=== PATIENT | male | born 1965 | race Two or more races ===

== ENCOUNTER 2018-05-05 22:30 | Emergency (ER) | payer SELFPAY ==
[~2018-05-05] VITALS: Ht 167.6 cm; Wt 70.3 kg
[~2018-05-05 22:30] MED LIST: ACETAMINOPHEN-1 EAC1 ORAL; ASPIRIN81 MG ORAL; CIPROFLOXACIN500 M2 ORAL; JANUMET 50-1,01 EACH ORAL; LISINOPRIL10 MG ORAL; METFORMIN HCL500 M1 ORAL; NORCO 5-325 TA1 EACH ORAL; NOVOLIN N100 UNIT/1 SUBQ
[2018-05-05] MEDS ORDERED: Sodium Chloride 500ML 500 ML IV ONE (23:01)
[2018-05-05 23:30] LABS: BASOPHILS % (AUTO) 1.6 % (0.0-2.0); EOSINOPHILS % (AUTO) 4.8 % (0.0-3.0); HEMOGLOBIN 15.8 G/DL (14.2-18.0); LYMPHOCYTES % (AUTO) 28.1 % (20.0-45.0); MEAN CORPUSCULAR VOLUME 90 FL (80-99); MONOCYTES % (AUTO) 10.7 % (1.0-10.0); NEUTROPHILS % (AUTO) 54.9 % (45.0-75.0); PLATELET COUNT 264 K/UL (150-450); RED BLOOD COUNT 4.99 M/UL (4.70-6.10); RED CELL DISTRIBUTION WIDTH 10.6 % (11.6-14.8); WHITE BLOOD COUNT 6.5 K/UL (4.8-10.8)
[2018-05-05 23:31] LABS: APPEARANCE,URINE CLEAR; BILIRUBIN, URINE NEGATIVE (NEGATIVE); COLOR,URINE PALE YELLOW; GLUCOSE, URINE (UA) 4+ (NEGATIVE); KETONES,URINE NEGATIVE (NEGATIVE); LEUKOCYTE ESTERASE ,URINE NEGATIVE (NEGATIVE); NITRITE,URINE NEGATIVE (NEGATIVE); PH,URINE 7 (4.5-8.0); PROTEIN,URINE NEGATIVE (NEGATIVE); UROBILINOGEN,URINE NORMAL MG/DL (0.0-1.0)
[2018-05-05 23:37] LABS: ANION GAP 7 mmol/L (5-15); BLOOD UREA NITROGEN 21 mg/dL (7-18); CALCIUM 8.5 MG/DL (8.5-10.1); CARBON DIOXIDE 25 MMOL/L (21-32); CHLORIDE 104 MMOL/L (98-107); CREATININE 0.6 MG/DL (0.55-1.30); SODIUM 136 MMOL/L (136-145)
[2018-05-05 23:42] LABS: ALANINE AMINOTRANSFERASE 63 U/L (12-78); ALBUMIN 3.5 G/DL (3.4-5.0); ALKALINE PHOSPHATASE 100 U/L (46-116); ASPARTATE AMINO TRANSFERASE 30 U/L (15-37); BILIRUBIN,TOTAL 0.5 MG/DL (0.2-1.0)
[2018-05-06] MEDS ORDERED: IBUPROFEN600 MG ORAL (00:20)
[2018-05-06 00:31] VITALS: BP 116/71
--- NOTE | 2018-05-07 07:18 | Emergency Room Report ---
History of Present Illness General Chief Complaint: Headache Source: Patient Present Illness HPI 52-year-old male presents ED for evaluation. States he's been experiencing a headache, dizziness, and generalized joint pain for the last several days. Pain is dull, 6 out of 10, nonradiating. Patient states he is a diabetic. States he is compliant with his medications. Denies any photophobia or blurry vision. Denies nausea or vomiting. Denies any neck stiffness. Denies chest pain shortness of breath. No other aggravating relieving factors. Denies any other associated symptoms Allergies: Coded Allergies: NO KNOWN DRUG ALLERGIES (Unverified Allergy, Unknown, 12/15/14) Patient History Past Medical History: DM, HTN Past Surgical History: none Pertinent Family History: none Social History: Denies: smoking, alcohol use, drug use Immunizations: UTD Reviewed Nursing Documentation: PMH: Agreed; PSxH: Agreed Nursing Documentation-PMH Hx Cardiac Problems: Yes - BRADYCARDIA Hx Hypertension: Yes Hx Diabetes: Yes Hx Cancer: No Hx Gastrointestinal Problems: No Hx Neurological Problems: Yes Hx Vertigo: Yes Hx Dizziness: Yes Hx Syncope: Yes Hx Headaches: Yes Hx Weakness: Yes Hx Fatigue: Yes Review of Systems All Other Systems: negative except mentioned in HPI Physical Exam Vital Signs Date Time Temp Pulse Resp B/P (MAP) Pulse Ox O2 Delivery O2 Flow Rate FiO2 05/05/18 22:34 97.9 77 16 114/74 95 Room Air 97.9 Sp02 EP Interpretation: reviewed, normal General Appearance: no apparent distress, alert, GCS 15, non-toxic Head: normocephalic, atraumatic Eyes: bilateral eye normal inspection, bilateral eye PERRL ENT: hearing grossly normal, normal pharynx, no angioedema, normal voice Neck: full range of motion, supple/symm/no masses Respiratory: chest non-tender, lungs clear, normal breath sounds, speaking full sentences Cardiovascular #1: regular rate, rhythm, no edema Cardiovascular #2: 2+ carotid (R), 2+ carotid (L), 2+ radial (R), 2+ radial (L) , 2+ dorsalis pedis (R), 2+ dorsalis pedis (L) Gastrointestinal: normal bowel sounds, non tender, soft, non-distended, no guarding, no rebound Rectal: deferred Genitourinary: normal inspection, no CVA tenderness Musculoskeletal: back normal, gait/station normal, normal range of motion, non- tender Neurologic: alert, oriented x3, responsive, motor strength/tone normal, sensory intact, speech normal Psychiatric: judgement/insight normal, memory normal, mood/affect normal, no suicidal/homicidal ideation Reflexes: 3+ bicep (R), 3+ bicep (L), 3+ tricep (R), 3+ tricep (L), 3+ knee (R) , 3+ knee (L) Skin: normal color, no rash, warm/dry, well hydrated Lymphatic: no adenopathy Medical Decision Making Diagnostic Impression: Primary Impression: Dizziness ER Course Hospital Course 52-year-old male presenting to ED with elevated BS, dizziness. Differential diagnoses include: ETOH/drug ingestion, sepsis, DKA Clinical course Patient placed on stretcher. On engine monitor. After initial history and physical I ordered labs, IV fluids, UA Labs-glucose >200, no anion gap, bicarbonate normal, electrolytes ok. no leukocytosis. On reassessment headache resolved. Patient feeling better. On my exam patient' s did not have any reproducible palpable tenderness to his legs and feet. Pain is noted primarily in the joints. Likely arthropathy. No indication for imaging at this time i. I feel this is a highly complex case requiring extensive working including EKG/Rhythm strip, Xray/CT/US, Blood/urine lab work, repeat exams while in ED, and administration of strong opiates/narcotics for pain control, admission to hospital or close patient follow up. diagnosis - dizziness Stable and discharged to home. Followup with PMD. Return to ED if symptoms recur or worsen Labs Test 05/05/18 23:14 White Blood Count 6.5 K/UL (4.8-10.8) Red Blood Count 4.99 M/UL (4.70-6.10) Hemoglobin 15.8 G/DL (14.2-18.0) Hematocrit 45.0 % (42.0-52.0) Mean Corpuscular Volume 90 FL (80-99) Mean Corpuscular Hemoglobin 31.6 PG (27.0-31.0) Mean Corpuscular Hemoglobin Concent 35.0 G/DL (32.0-36.0) Red Cell Distribution Width 10.6 % (11.6-14.8) Platelet Count 264 K/UL (150-450) Mean Platelet Volume 8.8 FL (6.5-10.1) Neutrophils (%) (Auto) 54.9 % (45.0-75.0) Lymphocytes (%) (Auto) 28.1 % (20.0-45.0) Monocytes (%) (Auto) 10.7 % (1.0-10.0) Eosinophils (%) (Auto) 4.8 % (0.0-3.0) Basophils (%) (Auto) 1.6 % (0.0-2.0) Urine Color Pale yellow Urine Appearance Clear Urine pH 7 (4.5-8.0) Urine Specific [place] 1.010 (1.005-1.035) Urine Protein Negative (NEGATIVE) Urine Glucose (UA) 4+ (NEGATIVE) Urine Ketones Negative (NEGATIVE) Urine Occult Blood Negative (NEGATIVE) Urine Nitrite Negative (NEGATIVE) Urine Bilirubin Negative (NEGATIVE) Urine Urobilinogen Normal MG/DL (0.0-1.0) Urine Leukocyte Esterase Negative (NEGATIVE) Sodium Level 136 MMOL/L (136-145) Potassium Level 4.0 MMOL/L (3.5-5.1) Chloride Level 104 MMOL/L (98-107) Carbon Dioxide Level 25 MMOL/L (21-32) Anion Gap 7 mmol/L (5-15) Blood Urea Nitrogen 21 mg/dL (7-18) Creatinine 0.6 MG/DL (0.55-1.30) Estimat Glomerular Filtration Rate > 60 mL/min (>60) Glucose Level 285 MG/DL (74-106) Calcium Level 8.5 MG/DL (8.5-10.1) Total Bilirubin 0.5 MG/DL (0.2-1.0) Aspartate Amino Transf (AST/SGOT) 30 U/L (15-37) Alanine Aminotransferase (ALT/SGPT) 63 U/L (12-78) Alkaline Phosphatase 100 U/L (46-116) Total Protein 6.9 G/DL (6.4-8.2) Albumin 3.5 G/DL (3.4-5.0) Globulin 3.4 g/dL Albumin/Globulin Ratio 1.0 (1.0-2.7) Last Vital Signs Date Time Temp Pulse Resp B/P (MAP) Pulse Ox O2 Delivery O2 Flow Rate FiO2 05/06/18 00:31 61 16 116/71 95 Room Air 05/05/18 22:34 97.9 97.9 Status: improved Disposition: HOME, SELF-CARE Condition: Stable Scripts Ibuprofen* (MOTRIN*) 600 Mg Tablet 600 MG ORAL Q8H PRN for For Pain, #30 TAB 0 Refills Prov: Cristhian Smith MD 05/06/18 Referrals: NOT CHOSEN IPA/MD,REFERRING (PCP) Patient Instructions: General Headache Without Cause Cristhian Smith MD May 07, 2018 07:18
== END 2018-05-06 00:35 | disposition home or self-care (01) ==
LOC: EMR 23:05
DX: R42 Dizziness and giddiness (principal); R51 Headache; E11.9 Type 2 diabetes mellitus without complications; I10 Essential (primary) hypertension
CPT/HCPCS: 36415; 80053; 81003; 82962; 85025; 96360; 96374; 99283

== ENCOUNTER 2019-01-14 08:15 | Inpatient (IN) | payer MEDICAID ==
[~2019-01-14] VITALS: Ht 167.6 cm; Wt 68.0 kg
[~2019-01-14 08:15] MED LIST changes: +IBUPROFEN600 MG ORAL
[2019-01-14] MEDS ORDERED: NKM (08:30)
[2019-01-14] MEDS ORDERED: Meclizine 25mg tab ORAL PRN ×2 (08:30→18:45)
[2019-01-14 08:38] VITALS: BP 126/82
--- NOTE | 2019-01-14 08:39 | Emergency Room Report ---
History of Present Illness General Chief Complaint: Headache Source: Patient, Medical Record Present Illness HPI 53-year-old male With a history of hypertension, diabetes, on lisinopril and metformin, noncompliant with meds for the last 3 months, presents with room spinning dizziness for 3 days, as well as longstanding bilateral knee pain radiating to his feet, no relief with motrin, no h/o weakness, slurred speech, syncope, cough, hemoptysis, chest pain, falls, trauma, fevers, urinary complaints. Allergies: Coded Allergies: NO KNOWN DRUG ALLERGIES (Unverified Allergy, Unknown, 12/15/14) Patient History Past Medical History: see triage record Reviewed Nursing Documentation: PMH: Agreed; PSxH: Agreed Nursing Documentation-PMH Hx Cardiac Problems: Yes - BRADYCARDIA Hx Hypertension: Yes Hx Diabetes: Yes Hx Cancer: No Hx Gastrointestinal Problems: No Hx Neurological Problems: Yes Hx Vertigo: Yes Hx Dizziness: Yes Hx Syncope: Yes Hx Headaches: Yes Hx Weakness: Yes Hx Fatigue: Yes Review of Systems All Other Systems: negative except mentioned in HPI Physical Exam Vital Signs Date Time Temp Pulse Resp B/P (MAP) Pulse Ox O2 Delivery O2 Flow Rate FiO2 01/14/19 08:28 98.4 95 16 121/79 95 Room Air Sp02 EP Interpretation: reviewed, normal General Appearance: no apparent distress, alert, non-toxic Head: normocephalic Eyes: bilateral eye normal inspection, bilateral eye PERRL, bilateral eye EOMI ENT: normal ENT inspection, hearing grossly normal, normal pharynx, no angioedema, normal voice, moist mucus membranes Neck: normal inspection, full range of motion, supple, supple/symm/no masses Respiratory: chest non-tender, lungs clear, normal breath sounds, no rhonchi, no respiratory distress, no retraction, no accessory muscle use, no wheezing, speaking full sentences, chest symmetrical, palpation of chest normal Cardiovascular #1: normal peripheral pulses, regular rate, rhythm, no edema, no gallop, no JVD, no murmur, no rub Cardiovascular #2: 2+ radial (R), 2+ radial (L) Gastrointestinal: normal inspection, non tender, soft, no mass, no guarding, no rebound Rectal: deferred Genitourinary: normal inspection, no CVA tenderness Musculoskeletal: back normal, gait/station normal, normal range of motion, non- tender, no calf tenderness, Luis's Sign negative Neurologic: alert, responsive, ribbon tier III-XII nml as tested, motor strength/tone normal, sensory intact, speech normal Psychiatric: judgement/insight normal, memory normal, mood/affect normal Skin: normal color, no rash, warm/dry, normal turgor Lymphatic: no adenopathy Medical Decision Making Diagnostic Impression: Primary Impression: Dizziness ER Course Patient with room spinning-type headache, intermittent for the last 3 days, has been noncompliant with MEDICATIONS last 3 months. His neurologic examination normal he has no nystagmus, did not had a sudden onset severe headache, was given meclizine and tylenol, ct head showed questionable old pontine infarct, and so patient given asa, admitted to tele for possible cva, he is not a tPA candidate given NIHSS of 0 with last known normal many days ago. EKG Diagnostic Results EKG Time: 08:34 EP Interpretation: no stemi Rate: normal Rhythm: NSR ST Segments: no acute changes ASA given to the pt in ED: Yes Rhythm Strip Diag. Results Rhythm Strip Time: 08:38 EP Interpretation: yes Rate: 90 Rhythm: NSR, no PVC's, no ectopy Chest X-Ray Diagnostic Results Chest X-Ray Diagnostic Results : Chest X-Ray Ordered: Yes # of Views/Limited/Complete: 1 View Indication: Other - dizziness EP Interpretation: Yes Interpretation: no consolidation, no effusion, no pneumothorax, no acute cardiopulmonary disease Impression: No acute disease Electronically Signed by: Mai Amaya MD CT/MRI/US Diagnostic Results CT/MRI/US Diagnostic Results : Imaging Test Ordered: ct head Impression no acute dz Last Vital Signs Date Time Temp Pulse Resp B/P (MAP) Pulse Ox O2 Delivery O2 Flow Rate FiO2 01/14/19 08:28 98.4 95 16 121/79 95 Room Air Disposition: ADMITTED INPATIENT Condition: Stable Referrals: NOT CHOSEN PIERRE/,REFERRING (PCP) MAI AMAYA M.D Jan 14, 2019 08:39
[2019-01-14 08:54] LABS: BASOPHILS % (AUTO) 1.4 % (0.0-2.0); EOSINOPHILS % (AUTO) 1.1 % (0.0-3.0); HEMOGLOBIN 16.1 G/DL (14.2-18.0); LYMPHOCYTES % (AUTO) 18.8 % (20.0-45.0); MEAN CORPUSCULAR VOLUME 89 FL (80-99); MONOCYTES % (AUTO) 9.8 % (1.0-10.0); PLATELET COUNT 248 K/UL (150-450); RED BLOOD COUNT 5.16 M/UL (4.70-6.10); RED CELL DISTRIBUTION WIDTH 10.8 % (11.6-14.8); WHITE BLOOD COUNT 8.3 K/UL (4.8-10.8)
[2019-01-14 09:05] LABS: ANION GAP 9 mmol/L (5-15); BLOOD UREA NITROGEN 16 mg/dL (7-18); CALCIUM 8.2 MG/DL (8.5-10.1); CARBON DIOXIDE 24 MMOL/L (21-32); CHLORIDE 99 MMOL/L (98-107); CREATININE 0.8 MG/DL (0.55-1.30); POTASSIUM 3.8 MMOL/L (3.5-5.1); SODIUM 132 MMOL/L (136-145)
[2019-01-14 09:17] LABS: ALANINE AMINOTRANSFERASE 47 U/L (12-78); ALBUMIN 3.7 G/DL (3.4-5.0); ALBUMIN/GLOBULIN RATIO 0.9 (1.0-2.7); ALKALINE PHOSPHATASE 113 U/L (46-116); ASPARTATE AMINO TRANSFERASE 32 U/L (15-37); BILIRUBIN,TOTAL 0.4 MG/DL (0.2-1.0)
--- NOTE | 2019-01-14 09:52 | Diagnostic Imaging Report ---
Indications: Dizziness and vertigo Technique: Spiral acquisitions obtained through the brain. Angled axial and coronal 5 x 5 mm slices were reconstructed. Total dose length product 1411.27 mGycm. CTDI vol(s) 70.38 mGy. Dose reduction achieved using automated exposure control Comparison: 12/16/2014 Findings: No acute intercranial hemorrhage nor edema, mass effect, nor midline shift. Old lacunar infarct versus artifact seen in the left side of the debbie, equivocally evident previously. Normal trammell-white differentiation. Normal-sized ventricles and extra axial CSF spaces. Visualized orbits and sinuses are unremarkable. Empty sella incidentally noted. The calvarium is intact. The mastoids are clear. Impression: Equivocal old left pontine lacunar infarct, versus artifact Negative for acute intracranial bleed or mass effect. I The CT scanner at [facility] is accredited by the [employer] and the scans are performed using protocols designed to limit radiation exposure to as low as reasonably achievable to attain images of sufficient resolution adequate for diagnostic evaluation.
--- NOTE | 2019-01-14 10:17 | Diagnostic Imaging Report ---
Indication: Cough Technique: One view of the chest Comparison: none Findings: Suboptimal inspiration. Lungs and pleural spaces are clear. Heart size is normal. No significant change Impression: No acute process
[2019-01-14 10:40] VITALS: BP 124/82
[2019-01-14 15:15] VITALS: BP 115/75
[2019-01-14 16:00] VITALS: BP 108/82
--- NOTE | 2019-01-14 18:32 | History & Physical ---
History and Physical History & Physicial Dictatred for Int Med-Dr Lehman no. [id number]. Cheng Can MD Jan 14, 2019 18:32
[2019-01-14 20:00] VITALS: BP 118/75
--- NOTE | 2019-01-14 21:30 | History and Physical Report ---
DATE OF ADMISSION: 01/14/2019 CHIEF COMPLAINT: The patient is a 53-year-old male who presents with chief complaint of dizziness. HISTORY OF PRESENT ILLNESS: The patient ran out of his diabetes medication three months ago. The patient has not been taking any medications. The patient states he began to feel dizzy about three days previously. The patient states the room was spinning. The patient does not feel unsteady on his feet, only the room spinning around him. The patient presented to [facility] emergency room. The patient was found to have elevated glucose of 386. The patient admitted for vertigo to rule out acute cerebrovascular accident. REVIEW OF SYSTEMS: CONSTITUTIONAL: The patient denies weight loss or weight gain. The patient denies fevers or chills. HEENT: The patient denies ear or throat pain. The patient denies headache. CARDIOVASCULAR: The patient denies palpitations or chest pain. CHEST: The patient denies wheeze or shortness of breath. ABDOMEN: The patient denies nausea, vomiting, diarrhea, or constipation. GENITOURINARY: The patient denies dysuria or increased frequency of urination. NEUROMUSCULAR: The patient complains of dizziness as above. The patient denies seizures or generalized weakness. PAST MEDICAL HISTORY: Significant for Type 2 diabetes. PAST SURGICAL HISTORY: The patient denies. CURRENT MEDICATIONS: The patient has not taken any medications in three months. ALLERGIES: No known drug allergies. SOCIAL HISTORY: The patient is and works as a manager merchandising. The patient denies tobacco use. The patient denies alcohol use having quit 12 years previously. PHYSICAL EXAMINATION: VITAL SIGNS: Temperature 98.4, respirations 20, pulse 80, blood pressure 124/82. GENERALLY: The patient is well-developed and well-nourished male, in no apparent distress. HEENT: Eyes, pupils are equal and responsive to light and accommodation. Extraocular movements are intact. NECK: Supple without lymphadenopathy. CHEST: Lungs are clear to auscultation bilaterally without wheezes or rales. CARDIOVASCULAR: Regular rate. S1 and S2 are normal without murmurs, rubs, or gallops. ABDOMEN: Soft, nontender, and nondistended. Positive bowel sounds. No evidence of hepatosplenomegaly. Currently, no rebound or guarding noted. EXTREMITIES: Negative for clubbing, cyanosis, or edema. RECTAL/GENITAL: Refused. NEUROLOGIC: Cranial nerves II through XII are grossly intact without focal deficits. Motor strength is 5/5 bilaterally. Deep tendon reflexes are 2+. LABORATORY AND DIAGNOSTIC DATA: CT scan of the brain revealed old left lacunar infarct, otherwise no acute cerebrovascular accident. A chest x-ray is reported as no acute disease. WBC 8.3, hemoglobin 16.1, hematocrit 46.0, platelets 248,000. Sodium 133, potassium 3.8, chloride 99, CO2 24, BUN 16, creatinine 0.8, glucose 386. Troponin 0.0. ASSESSMENT: This a 53-year-old male. 1. Vertigo. 2. Uncontrolled diabetes. 3. Hyperglycemia. TREATMENT: 1. Vertigo. Neurology consultation obtained with Dr. Oumar Martell. An initial CT scan failed to demonstrate acute cerebrovascular accident. We will follow recommendations of Neurology. 2. Diabetes/hyperglycemia. The patient has been out of her medications for 3 months. NovoLog sliding scale has been instituted. Cheng Can M.D. DR: Duke JOB#: [id number] CC:
[2019-01-14] MEDS: NovoLOG Insulin Flexpen SUBQ SCH (22:09)
[2019-01-15] VITALS: BP 124/74
[2019-01-15 04:00] VITALS: BP 129/79
[2019-01-15] MEDS: NovoLOG Insulin Flexpen SUBQ SCH ×3 (06:16→17:02)
[2019-01-15 07:35] LABS: BASOPHILS % (AUTO) 1.1 % (0.0-2.0); EOSINOPHILS % (AUTO) 1.5 % (0.0-3.0); HEMATOCRIT 45.6 % (42.0-52.0); HEMOGLOBIN 15.8 G/DL (14.2-18.0); LYMPHOCYTES % (AUTO) 33.9 % (20.0-45.0); MEAN CORPUSCULAR VOLUME 90 FL (80-99); MONOCYTES % (AUTO) 6.5 % (1.0-10.0); PLATELET COUNT 246 K/UL (150-450); RED BLOOD COUNT 5.07 M/UL (4.70-6.10); RED CELL DISTRIBUTION WIDTH 10.9 % (11.6-14.8); WHITE BLOOD COUNT 5.6 K/UL (4.8-10.8)
[2019-01-15 08:00] VITALS: BP 107/65
[2019-01-15 08:38] LABS: ANION GAP 9 mmol/L (5-15); BLOOD UREA NITROGEN 15 mg/dL (7-18); CARBON DIOXIDE 28 MMOL/L (21-32); CHLORIDE 101 MMOL/L (98-107); CHOLESTEROL 224 MG/DL (< 200); CREATININE 0.7 MG/DL (0.55-1.30); HDL CHOLESTEROL 30 MG/DL (40-60); POTASSIUM 4.3 MMOL/L (3.5-5.1); SODIUM 138 MMOL/L (136-145); TRIGLYCERIDES 123 MG/DL (30-150)
[2019-01-15] MEDS ORDERED: Aspirin EC 325mg tab ORAL SCH (09:00)
[2019-01-15] MEDS ORDERED: metFORMIN 500mg tab ORAL SCH (09:00)
--- NOTE | 2019-01-15 12:59 | Consultation ---
History of Present Illness General Date patient seen: Jan 15, 2019 Chief Complaint: Headache Present Illness HPI 53-year-old male With a history of hypertension, diabetes, presents with room spinning dizziness for 3 days, no h/o weakness, slurred speech, syncope, cough, Allergies: Coded Allergies: NO KNOWN DRUG ALLERGIES (Unverified Allergy, Unknown, 12/15/14) Medication History Scheduled Aspirin* (Aspirin*), 81 MG ORAL DAILY Lisinopril* (Lisinopril*), 10 MG ORAL DAILY, (Reported) Metformin Hcl* (Metformin Hcl*), 500 MG ORAL AC, (Reported) No Known Medications* (NKM - No Known Medications*), 0 ., (Reported) Nph, Human Insulin Isophane* (Novolin N*), 10 UNITS SUBQ BID Scheduled PRN Acetaminophen With Codeine (T#3) (Tylenol #3 Tab*), 1 TAB ORAL Q8H PRN for For Pain Ibuprofen* (Motrin*), 600 MG ORAL Q8H PRN for For Pain Patient History Healthcare decision maker Resuscitation status Full Code Advanced Directive on File Past Medical/Surgical History Past Medical/Surgical History: (1) History of diabetes mellitus (2) Noncompliance (3) History of hypertension Review of Systems All Other Systems: negative except mentioned in HPI Physical Exam General Appearance: WD/WN Lines, tubes and drains: peripheral HEENT: normocephalic, atraumatic Neck: non-tender, normal alignment Respiratory/Chest: chest wall non-tender, lungs clear Breasts: no masses Cardiovascular/Chest: normal peripheral pulses Abdomen: normal bowel sounds Genitourinary/Rectal: normal genital exam Extremities: normal range of motion Last 24 Hour Vital Signs Date Time Temp Pulse Resp B/P (MAP) Pulse Ox O2 Delivery O2 Flow Rate FiO2 01/15/19 09:20 Room Air 01/15/19 08:00 96.6 75 18 107/65 (79) 97 01/15/19 04:00 97.3 77 20 129/79 (96) 94 01/15/19 04:00 77 01/15/19 00:00 79 01/15/19 00:00 99.2 87 20 124/74 (91) 94 01/14/19 21:16 79 84 90 01/14/19 21:00 Room Air 01/14/19 20:00 97.3 79 20 118/75 (89) 95 01/14/19 20:00 74 01/14/19 16:00 97.7 76 18 108/82 (91) 95 01/14/19 16:00 73 01/14/19 15:23 98.4 72 17 115/75 96 Room Air 01/14/19 15:15 98.4 72 17 115/75 96 Room Air Laboratory Tests Test 01/14/19 19:25 01/15/19 06:26 Hemoglobin A1c 10.8 % (4.3-6.0) H 11.5 % (4.3-6.0) H Troponin I 0.002 ng/mL (0.000-0.056) 0.000 ng/mL (0.000-0.056) White Blood Count 5.6 K/UL (4.8-10.8) Red Blood Count 5.07 M/UL (4.70-6.10) Hemoglobin 15.8 G/DL (14.2-18.0) Hematocrit 45.6 % (42.0-52.0) Mean Corpuscular Volume 90 FL (80-99) Mean Corpuscular Hemoglobin 31.1 PG (27.0-31.0) H Mean Corpuscular Hemoglobin Concent 34.6 G/DL (32.0-36.0) Red Cell Distribution Width 10.9 % (11.6-14.8) L Platelet Count 246 K/UL (150-450) Mean Platelet Volume 7.9 FL (6.5-10.1) Neutrophils (%) (Auto) 57.0 % (45.0-75.0) Lymphocytes (%) (Auto) 33.9 % (20.0-45.0) Monocytes (%) (Auto) 6.5 % (1.0-10.0) Eosinophils (%) (Auto) 1.5 % (0.0-3.0) Basophils (%) (Auto) 1.1 % (0.0-2.0) Sodium Level 138 MMOL/L (136-145) Potassium Level 4.3 MMOL/L (3.5-5.1) Chloride Level 101 MMOL/L (98-107) Carbon Dioxide Level 28 MMOL/L (21-32) Anion Gap 9 mmol/L (5-15) Blood Urea Nitrogen 15 mg/dL (7-18) Creatinine 0.7 MG/DL (0.55-1.30) Estimat Glomerular Filtration Rate > 60 mL/min (>60) Glucose Level 295 MG/DL (74-106) H Calcium Level 9.0 MG/DL (8.5-10.1) Pro-B-Type Natriuretic Peptide 8 pg/mL (0-125) Triglycerides Level 123 MG/DL (30-150) Cholesterol Level 224 MG/DL (< 200) H LDL Cholesterol 173 mg/dL (<100) H HDL Cholesterol 30 MG/DL (40-60) L Cholesterol/HDL Ratio 7.5 (3.3-4.4) H Height (Feet): 5 Height (Inches): 6.00 Weight (Pounds): 150 Medications Current Medications Medications (Trade) Dose Ordered Sig/Sukumar Route PRN Reason Start Time Stop Time Status Last Admin Dose Admin Acetaminophen (Tylenol) 650 mg Q4H PRN ORAL Mild Pain (Pain Scale 1-3) 01/14/19 18:45 02/13/19 18:44 Acetaminophen (Tylenol) 650 mg Q4H PRN ORAL fever 01/14/19 18:45 02/13/19 18:44 Aspirin (Ecotrin) 325 mg DAILY ORAL 01/15/19 09:00 02/14/19 08:59 01/15/19 10:09 Dextrose (Dextrose 50%) 25 ml Q30M PRN IV Hypoglycemia 01/14/19 18:45 02/13/19 18:44 Dextrose (Dextrose 50%) 50 ml Q30M PRN IV Hypoglycemia 01/14/19 18:45 02/13/19 18:44 Insulin Aspart (NovoLOG) BEFORE MEALS AND HS SUBQ 01/14/19 21:00 02/13/19 20:59 01/15/19 12:14 Insulin Detemir (Levemir) 20 units Q24H SUBQ 01/15/19 13:00 02/14/19 12:59 UNV Meclizine HCl (Antivert) 25 mg Q6H PRN ORAL for dizziness 01/14/19 18:45 02/13/19 18:44 Metformin HCl (Glucophage) 500 mg BID ORAL 01/15/19 09:00 02/14/19 08:59 01/15/19 10:09 Pantoprazole (Protonix) 40 mg DAILY ORAL 01/15/19 09:00 02/14/19 08:59 01/15/19 10:09 Temazepam (Restoril) 15 mg DAILYPRN PRN ORAL Insomnia 01/14/19 18:45 01/21/19 18:44 Assessment/Plan Problem List: (1) TIA (transient ischemic attack) ICD Codes: G45.9 - Transient cerebral ischemic attack, unspecified SNOMED: 799973705 (2) History of diabetes mellitus ICD Codes: Z86.39 - Personal history of other endocrine, nutritional and metabolic disease SNOMED: 573721254 (3) Noncompliance ICD Codes: Z91.19 - Patient's noncompliance with other medical treatment and regimen SNOMED: 5966342 (4) Vertigo ICD Codes: R42 - Dizziness and giddiness SNOMED: 937361315 (5) History of hypertension ICD Codes: Z86.79 - Personal history of other diseases of the circulatory system SNOMED: 742811465 Assessment/Plan sliding scale monitor BP Neuro evaluation Med/surg Geovanny Lovett MD Jan 15, 2019 12:59
[2019-01-15] MEDS ORDERED: Levemir Flexpen SUBQ SCH (14:00)
[2019-01-15] MEDS ORDERED: LIPITOR80 MG ORAL (15:43)
[2019-01-15] MEDS ORDERED: METFORMIN HCL1000 M1 ORAL (15:43)
[2019-01-15] MEDS ORDERED: Tylenol #3 tab (300mg/30mg) ORAL PRN (15:45)
--- NOTE | 2019-01-15 15:48 | Discharge Summary ---
Discharge Summary Hospital Course Date of Admission Jan 14, 2019 at 10:27 Date of Discharge Admitting Diagnosis cva HPI Jared Valerio is a 53 year old male who was admitted on Jan 14, 2019 at 10:27 for Cerebral Vascular Accident Hospital Course @ Discharge Discharge Disposition Patient was discharged to Delmer Lehman MD Jan 15, 2019 15:48
[2019-01-15 16:00] VITALS: BP 115/69
--- NOTE | 2019-01-15 16:04 | Diagnostic Imaging Report ---
Indication: Hypertension diabetes presenting with vertigo Technique: The head was imaged in a 1.5 Arely magnet. Sequences obtained include sagittal and axial T1 FLAIR, axial T2 fast spin echo with fat saturation, axial T2 FLAIR, diffusion and ADC map. Comparison: None Findings: The size, contour, and configuration of the sulci, ventricles, and basal cisterns appear normal. Daley-white differentiation is normal. There is no restricted diffusion. There is no mass effect, midline shift, edema, or hemorrhage. There are no abnormal extra-axial or intra-axial fluid collections. The corpus callosum is unremarkable. The brainstem and cerebellum are unremarkable. The sella is unremarkable. Bone marrow signal within the visualized osseous structures appears age appropriate and unremarkable otherwise. Impression: Negative MRI brain without contrast.
--- NOTE | 2019-01-15 22:00 | Discharge Summary ---
DATE OF ADMISSION: 01/14/2019 DATE OF DISCHARGE: 01/15/2019 HISTORY OF PRESENT ILLNESS: This is a 53-year-old gentleman with past medical history significant for diabetes type 2 and prior history of stroke, who was presented to the hospital after he ran out the diabetes medication for past three months. The patient has not been taking any medication. The patient began to feel dizzy past three days. Shortly after initial evaluation, the patient was noted to have blood glucose of 386 and subsequently, the patient was admitted to the hospital for diabetes type 2, uncontrolled as well as vertigo and an old stroke. Throughout the hospital course the patient followed up with Dr. Lovett and a CT of the head was done in the ER showed equivocal old left pontine lacunar infarction versus artifact. Negative for acute intracranial bleeding or mass effect. The patient's status improved and will be discharged home today to be followed as an outpatient with his primary doctor. FINAL DIAGNOSES: 1. Old CVA. 2. Diabetes type 2, uncontrolled. 3. Vertigo. MEDICATION ON DISCHARGE: Continue discharge medication list. ACTIVITY: As tolerated. DIET: Diabetic diet. FOLLOWUP: The patient was advised to follow up with a primary physician within one week. Delmer Lehman M.D. DR: DONNA JOB#: [id number] CC:
[2019-01-16] MEDS ORDERED: Lisinopril 10mg tab ORAL SCH (09:00)
[2019-01-16] MEDS ORDERED: Aspirin Baby 81mg ORAL SCH (09:00)
== END 2019-01-15 17:51 | disposition home or self-care (01) | DRG 420 ==
LOC: EMR 08:30 → 2E 10:27 → EDBEDREQ 15:07
DX: E11.65 Type 2 diabetes mellitus with hyperglycemia (principal); I10 Essential (primary) hypertension; R42 Dizziness and giddiness; Z86.73 Personal history of transient ischemic attack (TIA), and cerebral infarction without residual deficits; Z79.82 Long term (current) use of aspirin; Z79.4 Long term (current) use of insulin; Z91.14 Patient's other noncompliance with medication regimen
CPT/HCPCS: 36415; 70450; 70551; 71045; 80048; 80053; 80061; 82962; 83036; 83880; 84484; 85025; 93005; 99285; J1815; S5561

== ENCOUNTER 2019-08-28 03:15 | Emergency (ER) | payer MEDICAID ==
[~2019-08-28] VITALS: Ht 162.6 cm; Wt 70.3 kg
[~2019-08-28 03:15] MED LIST changes: +LIPITOR80 MG ORAL; +METFORMIN HCL1000 M1 ORAL; +NKM
--- NOTE | 2019-08-28 03:21 | NUR ---
ED Nurse Note: Walk-in ptient presents with complaints of abscess x 3 days at right neck.
[2019-08-28 03:22] VITALS: BP 138/85
[2019-08-28] MEDS ORDERED: CEPHALEXIN500 MG ORAL (03:57)
--- NOTE | 2019-08-28 03:59 | NUR ---
ED Nurse Note: Patient cleared for discharge by ERMD, patient verbalized understanding of discharge instructions, ID band removed, patient departed with all belongings.
[2019-08-28 04:01] VITALS: BP 138/85
--- NOTE | 2019-08-28 04:02 | Emergency Room Report ---
History of Present Illness General Chief Complaint: Skin Rash/Abscess Present Illness HPI Disclaimer: Please note that this report is being documented using [employer] technology. This can lead to erroneous entry secondary to incorrect interpretation by the dictating instrument. HPI: 54-year-old male with history of type 2 diabetes on metformin presents for evaluation of a painful swelling over the back of the right neck. Symptoms have been present 2 to 3 days. He notes warmth and tenderness but denies drainage. No bleeding. Notes some limitation to range of motion in the neck from pain in that area. Denies any throat swelling, difficulty breathing, fever , chills, vomiting, vision changes or other changes in his health. He does not shave the back of the area but states he was picking at it. PMH: Diabetes PSH: none Allergies: None Social Hx: None Allergies: Coded Allergies: NO KNOWN DRUG ALLERGIES (Unverified Allergy, Unknown, 12/15/14) Nursing Documentation-PMH Past Medical History: No History, Except For Hx Cardiac Problems: Yes - BRADYCARDIA Hx Hypertension: Yes Hx Diabetes: Yes Hx Cancer: No Hx Gastrointestinal Problems: No Hx Neurological Problems: Yes Hx Vertigo: Yes Hx Dizziness: Yes Hx Syncope: Yes Hx Headaches: Yes Hx Weakness: Yes Hx Fatigue: Yes Review of Systems All Other Systems: negative except mentioned in HPI Physical Exam Vital Signs Date Time Temp Pulse Resp B/P (MAP) Pulse Ox O2 Delivery O2 Flow Rate FiO2 08/28/19 03:16 98.4 86 19 138/85 (102) 98 Room Air General: Awake and alert, no acute distress HEENT: NC/AT. EOMI. Resp: Normal work of breathing Skin: Intact. No abrasions, laceration or rash over the exposed skin MSK: There is a 7 cm circular region of erythema and induration that is tender to palpation and warm to the touch over the right side of the back of the neck. Small pustule in the center but cannot express any purulent material. Ultrasound evaluation shows no fluid collection but does show cobblestoning in the superficial layers consistent with a cellulitis. No evidence of deep infection or abscess Neuro: Awake and alert. Mentating appropriately Procedures Additional Procedure Procedure Narrative Ultrasound evaluation of area of erythema over the right side of the back of the neck. Cobblestoning in the upper skin layers consistent with a cellulitis. No deep space abscess. Medical Decision Making Diagnostic Impression: Primary Impression: Cellulitis ER Course 54-year-old male presents for evaluation of right-sided neck swelling consistent with a cellulitis. There is no evidence of deep space infection on ultrasound. The patient will be started on Keflex for 10 days and discharged to follow-up with his PMD. There is no evidence of obstruction of the neck, no difficulty breathing, no systemic signs of infection and his he is otherwise feeling well. Will discharge home with outpatient follow-up. We discussed reasons to return to the emergency department. He understands and agrees with this treatment plan and was discharged home Last Vital Signs Date Time Temp Pulse Resp B/P (MAP) Pulse Ox O2 Delivery O2 Flow Rate FiO2 08/28/19 03:22 98.4 87 19 138/85 98 Room Air Disposition: HOME, SELF-CARE Condition: Stable Scripts Cephalexin* (KEFLEX*) 500 Mg Capsule 500 MG ORAL EVERY 12 HOURS for 10 Days, #20 CAP 0 Refills Prov: Lake Vargas MD 08/28/19 Referrals: NOT CHOSEN IPA/,REFERRING (PCP) Tariq Corbin [facility]. [facility] Patient Instructions: Cellulitis Additional Instructions: He will be treated for a skin infection with antibiotics 2 times a day for 10 days. Finish all the pills prescribed to you even if you get better over the next few days. Return to the emergency department if you have fevers, worsening pain, drainage, trouble breathing or other changes in your health. See your doctor this week for reevaluation. Return with any new or worsening symptoms Lake Vargas MD Aug 28, 2019 04:01
== END 2019-08-28 04:04 | disposition home or self-care (01) ==
LOC: EMR 03:52
DX: L03.221 Cellulitis of neck (principal); E11.9 Type 2 diabetes mellitus without complications; I10 Essential (primary) hypertension
CPT/HCPCS: 99282

== ENCOUNTER 2020-12-08 09:03 | Emergency (ER) | payer MEDICAID ==
[~2020-12-08] VITALS: Ht 165.1 cm; Wt 45.4 kg
[~2020-12-08 09:03] MED LIST changes: +CEPHALEXIN500 MG ORAL
--- NOTE | 2020-12-08 09:28 | NUR ---
coplaints not feeling good x 3 days deneis any chest pain or shortness of breath ekg done dr bertrand notified
--- NOTE | 2020-12-08 09:30 | NUR ---
ekg faxed to [facility] for eval
--- NOTE | 2020-12-08 09:40 | NUR ---
pateint has been accepted at [facility] as [facility] 911 has been called to transfer
--- NOTE | 2020-12-08 09:42 | Emergency Room Report ---
History of Present Illness General Chief Complaint: Feeling sick Source: Patient Present Illness HPI Patient has a history of diabetes high cholesterol and is a poor historian. He is noncompliant with his medication states that he has been taking his medications. For quite some time. He states that for the last 3 days he has not felt well. He felt weak and a little shaky. He thinks that his diabetes might be under control. He came here for further evaluation. He denies any fever nausea vomiting diarrhea chills. Denies any chest pain or shortness of breath. Denies any leg pain or leg swelling. Symptoms noted to be moderate to severe. No other modifying factors. No other associated signs and symptoms. No other complaints were noted. Allergies: Coded Allergies: NO KNOWN DRUG ALLERGIES (Unverified Allergy, Unknown, 12/15/14) Patient History Past Medical History: DM, other - High cholesterol Past Surgical History: none Pertinent Family History: none Social History: Denies: smoking, alcohol use, drug use Reviewed Nursing Documentation: PMH: Agreed; PSxH: Agreed Nursing Documentation-PMH Hx Cardiac Problems: Yes - BRADYCARDIA Hx Hypertension: Yes Hx Diabetes: Yes Hx Cancer: No Hx Gastrointestinal Problems: No Hx Neurological Problems: Yes Hx Vertigo: Yes Hx Dizziness: Yes Hx Syncope: Yes Hx Headaches: Yes Hx Weakness: Yes Hx Fatigue: Yes Review of Systems All Other Systems: negative except mentioned in HPI Physical Exam Afebrile. Vital signs appear normal. Slightly tachycardic with a heart rate of 108. O2 saturation was 94% on room air which is interpreted to be normal by me. General Appearance: alert, other - Slightly anxious. Head: atraumatic Eyes: bilateral eye normal inspection ENT: normal ENT inspection, hearing grossly normal, normal voice Neck: normal inspection, full range of motion, supple, no bony tend Respiratory: normal inspection, lungs clear, normal breath sounds, no respiratory distress, no retraction, no wheezing Cardiovascular #1: regular rate, rhythm, no edema Gastrointestinal: normal inspection, normal bowel sounds, non tender, soft, no guarding, no hernia Genitourinary: no CVA tenderness Musculoskeletal: normal inspection, back normal, normal range of motion Neurologic: alert, responsive, speech normal, normal inspection Psychiatric: judgement/insight normal, anxious Skin: no rash Procedures Critical Care Time Critical Care Time Patient had a critical medical condition which untreated could potentially result in life or limb threatening injury. Total critical care time excluding procedures was approximately 35 minutes. Medical Decision Making Diagnostic Impression: Primary Impression: Acute AR ER Course Patient presents to the emergency department today complaining of weakness. However given patient's presentation concern for cardiac disease. EKG was performed. Given presentation this is consistent with acute AR. Patient had EKG ST segment elevations inferior laterally. We immediately called [facility] who is our center for STEMI. We will transfer patient to [facility] for emergent treatment. Case was discussed with Dr. Allred. Who had accepted patient. Patient will be transferred via EMS to [facility]. EKG Diagnostic Results Troponin ordered: Yes When was troponin ordered?: Dec 08, 2020 Rate: normal Rhythm: NSR ST Segments: other - ST segment elevation inferior laterally. Rhythm Strip Diag. Results EP Interpretation: yes Rate: 105 Rhythm: NSR, no PVC's, no ectopy Status: unchanged Disposition: SHORT-TERM HOSP Condition: Critical Hunter Lazo MD Dec 08, 2020 09:42
[2020-12-08 09:44] VITALS: BP 100/60
[2020-12-08] MEDS ORDERED: Aspirin Baby 81mg ORAL ONE (09:45)
--- NOTE | 2020-12-08 09:55 | NUR ---
report given to arleth duran patient is to be transferd to [facility]
[2020-12-08 09:56] LABS: HEMATOCRIT 47.4 % (42.0-52.0); HEMOGLOBIN 15.6 G/DL (14.2-18.0); MEAN CORPUSCULAR VOLUME 90 FL (80-99); PLATELET COUNT 603 K/UL (150-450); RED BLOOD COUNT 5.25 M/UL (4.70-6.10); RED CELL DISTRIBUTION WIDTH 11.8 % (11.6-14.8); WHITE BLOOD COUNT 21.1 K/UL (4.8-10.8)
[2020-12-08 10:04] LABS: ANION GAP 10 mmol/L (5-15); BLOOD UREA NITROGEN 17 mg/dL (7-18); CALCIUM 9.1 MG/DL (8.5-10.1); CARBON DIOXIDE 25 MMOL/L (21-32); CHLORIDE 99 MMOL/L (98-107); CREATININE 1.1 MG/DL (0.55-1.30); POTASSIUM 4.3 MMOL/L (3.5-5.1); SODIUM 134 MMOL/L (136-145)
[2020-12-08 10:08] LABS: INR 1.1 (0.9-1.1)
[2020-12-08 10:15] LABS: ALANINE AMINOTRANSFERASE 62 U/L (12-78); ALBUMIN 2.1 G/DL (3.4-5.0); ALBUMIN/GLOBULIN RATIO 0.4 (1.0-2.7); ALKALINE PHOSPHATASE 91 U/L (46-116); ASPARTATE AMINO TRANSFERASE 181 U/L (15-37); BILIRUBIN,TOTAL 1.7 MG/DL (0.2-1.0)
[2020-12-08 10:21] VITALS: BP 110/60
[2020-12-08 10:24] LABS: BILIRUBIN,DIRECT 0.7 MG/DL (0.0-0.3)
== END 2020-12-08 10:00 | disposition short-term general hospital (02) ==
LOC: EMR 09:37
DX: I21.9 Acute myocardial infarction, unspecified (principal); I11.9 Hypertensive heart disease without heart failure; E11.9 Type 2 diabetes mellitus without complications
CPT/HCPCS: 36415; 80053; 82248; 83880; 84484; 85007; 85025; 85610; 85730; 93005; Z7502; 99291